=== PATIENT | male | born 1965 | race Caucasian/White ===

== ENCOUNTER 2019-12-03 20:05 | Inpatient (IN) ==
[2019-12-03] MEDS ORDERED: Naloxone 0.4 MG/ML INJ IVP PRN ×2 (22:31→22:36)
[2019-12-03] MEDS ORDERED: Potassium Chloride 20 MEQ, Lidocaine 1% 2 ML in 0.9 % Sodium Chloride 250 ML IVPB ONE (23:26)
[2019-12-04] MEDS: Ampicillin/Sulbactam 1,500 MG in 0.9 % Sodium Chloride Mini Bag 100 ML IVPB SCH ×4 (00:29→17:18)
[2019-12-04] MEDS: Nicotine 21 MG PATCH.TD24 TD SCH (03:29)
[2019-12-04] MEDS: *HR* Heparin 5,000 UNIT/ML VIAL SQ SCH ×3 (06:05→17:18)
[2019-12-04 07:03] LABS: Alanine Aminotransferase 11 Units/L (7-52); Albumin 3.8 g/dL (3.5-5.7); Albumin/Globulin Ratio 1.4 (1.1-2.2); Alkaline Phosphatase 91 Units/L (34-104); Aspartate Amino Transferase 12 Units/L (13-39); BUN/Creatinine Ratio 13 (6-26); Bilirubin,Total 0.4 mg/dL (0.3-1.0); Blood Urea Nitrogen 19 mg/dL (6-20); Calcium 8.7 mg/dL (8.6-10.3); Carbon Dioxide 23 mEq/L (23-29); Chloride 108 mEq/L (98-107); Creatine Kinase 120 Units/L (30-223); Globulin 2.7 g/dL (2.4-3.5); Glucose 100 mg/dL (70-105); Magnesium 2.3 mg/dL (1.6-2.6); Osmolality,Calculated 286 (280-300); Potassium 3.9 mEq/L (3.5-5.1); Sodium 137 mEq/L (136-145); Total Protein 6.5 g/dL (6.4-8.9); Troponin I < 0.03 ng/mL (< 0.04); eGFR For African Americans > 60 (> 60); eGFR For Non-African Americans 52 (> 60)
[2019-12-04 08:12] LABS: Estimated Average Glucose 126 mg/dl
[2019-12-04] MEDS: Aspirin Enteric Coated 81 MG Tablet PO SCH (08:55)
[2019-12-04] MEDS: Potassium Effervescent 25 MEQ TABLET.EFF PO SCH ×2 (08:55→20:03)
[2019-12-04] MEDS ORDERED: Gadolinium Contrast Agent (WT Based) IV PRN (09:46)
[2019-12-04] MEDS ORDERED: Acetaminophen 325 MG TABLET PO PRN (16:52)
[2019-12-05] MEDS: Nicotine 21 MG PATCH.TD24 TD SCH (00:53)
[2019-12-05] MEDS: Ampicillin/Sulbactam 1,500 MG in 0.9 % Sodium Chloride Mini Bag 100 ML IVPB SCH ×2 (00:54→05:19)
[2019-12-05 02:53] LABS: Hematocrit 36.6 % (37.5-50.1); Hemoglobin 11.5 g/dL (12.9-16.9); Mean Corpuscular HGB Conc 31.4 g/dL (31.6-35.5); Mean Corpuscular Hemoglobin 27.3 pg (28.0-33.3); Mean Corpuscular Volume 86.9 fL (83.0-100.0); Mean Platelet Volume 9.9 fL (9.4-12.4); Platelet Count 231 K/mcL (140-400); Red Blood Count 4.21 M/mcL (4.19-5.50); Red Cell Distribution Width 15.8 % (11.5-14.5)
[2019-12-05 03:09] LABS: BUN/Creatinine Ratio 13 (6-26); Blood Urea Nitrogen 18 mg/dL (6-20); Carbon Dioxide 24 mEq/L (23-29); Chloride 103 mEq/L (98-107); Glucose 91 mg/dL (70-105); Osmolality,Calculated 275 (280-300); Potassium 3.9 mEq/L (3.5-5.1); Sodium 132 mEq/L (136-145); eGFR For African Americans > 60 (> 60); eGFR For Non-African Americans 52 (> 60)
[2019-12-05] MEDS: *HR* Heparin 5,000 UNIT/ML VIAL SQ SCH (05:20)
[2019-12-05] MEDS: Potassium Effervescent 25 MEQ TABLET.EFF PO SCH (08:30)
[2019-12-05] MEDS: Aspirin Enteric Coated 81 MG Tablet PO SCH (08:30)
[2019-12-05 10:30] LABS: Chol/HDL Ratio 5.8 (0-4.9)
[2019-12-05 10:56] VITALS: BP 157/89
[2019-12-05] MEDS ORDERED: Gabapentin 300 MG CAPSULE PO SCH (15:00)
[2019-12-06] MEDS ORDERED: hydroCHLOROthiazide 25 MG TABLET PO SCH (09:00)
== END 2019-12-05 17:10 | disposition home or self-care (01) | DRG 81 ==
LOC: 3BNU
PROVIDERS: ADMIT Internal Medicine; ATTEND Internal Medicine